=== PATIENT | female | born 1940 | race Caucasian/White ===

== ENCOUNTER 2018-08-17 14:40 | Inpatient (IN) | payer OTHER ==
[~2018-08-17] VITALS: Ht 167.6 cm; Wt 80.5 kg
[2018-08-17 15:35] LABS: ABSOLUTE BASOPHIL COUNT 0 /CUMM (0.0-0.2); ABSOLUTE EOSINOPHIL COUNT 0.2 /CUMM (0.0-0.7); ABSOLUTE GRANULOCYTE CT 3.4 /CUMM (1.4-6.5); ABSOLUTE LYMPH COUNT 1.7 /CUMM (1.2-3.4); ABSOLUTE MONOCYTE COUNT 0.5 /CUMM (0.10-0.60); BASOPHIL % 0.6 % (0.0-2.0); EOSINOPHIL % 3.8 % (0-5); GRANULOCYTE % 57.8 % (42.2-75.2); MEAN CORPUSCULAR HGB 30.6 PG (27.0-31.0); MEAN CORPUSCULAR VOLUME 92.8 FL (81.0-99.0); MEAN PLATELET VOLUME 7.4 FL (7.4-10.4); PLATELET COUNT 228 /CUMM (130-400); RBC DISTRIBUTION WIDTH 15.2 % (11.5-14.5); RED BLOOD CELL CT 3.56 /CUMM (4.20-5.40); WHITE BLOOD CELL COUNT 5.9 /CUMM (4.8-10.8)
--- NOTE | 2018-08-17 15:54 | ED CARDIAC/CP/PALPITATIONS ---
History of Present Illness General Chief Complaint: General Adult Stated Complaint: SIB HIGHWATCH FOR IRREGULAR EKG READING Source: patient Exam Limitations: no limitations Allergies Coded Allergies: No Known Allergies (08/17/18) Reconcile Medications Amlodipine Besylate 5 MG TABLET 1 TAB PO DAILY HIGH BLOOD PRESSURE (Reported) Fluoxetine HCl 20 MG CAPSULE 1 CAP PO DAILY DEPRESSION (Reported) Gabapentin 300 MG CAPSULE 1 CAP PO TID NERVES (Reported) Ibuprofen 600 MG TABLET 1 TAB PO TID PAIN CONTROL (Reported) with food Losartan Potassium 50 MG TABLET 1 TAB PO DAILY HIGH BLOOD PRESSURE (Reported) Pravastatin Sodium 40 MG TABLET 1 TAB PO QPM HIGH CHOLESTROL (Reported) Sertraline HCl 50 MG TABLET 1 TAB PO DAILY DEPRESSION (Reported) Trazodone HCl 50 MG TABLET 1 TAB PO QPM SLEEP HELP (Reported) Triage Note: 78F SIB HIGHWATCH DUE TO IRREGULAR EKG FINDINGS. PT DENIES KNOWN CARDIAC ISSUES ASIDE FROM AN AORTIC ANEURYSM. PT TAKEN TO EKG [place]. IRREGULAR RHYTHYM AUSCULTATED APICALLY. PT DENIES CP OR PRESSURE BUT ENDORSES INTERMITTENT PALPITATIONS AND FEELING LIKE HER HEART IS "FLIPPING" IN HER CHEST. DENIES SOB/RANKIN. DENIES N/V/D Triage Nurses Notes Reviewed? yes Duration: unknown duration HPI: 78-year-old female was sent in by [facility] facility for new onset A. fib. Patient was going to be admitted for alcoholism. She had just left a inpatient detox facility. Her last drink was 9 days ago. She does admit to some intermittent palpitations but denies any chest pain or shortness of breath. (El DUBON,Gary) Vital Signs & Intake/Output Vital Signs & Intake/Output Vital Signs Date Time Temp Pulse Resp B/P B/P Pulse O2 O2 Flow FiO2 Mean Ox Delivery Rate 08/17 2004 98.9 81 20 108/62 98 Room Air 08/17 1646 98.4 84 16 118/74 96 Room Air 08/17 1558 Room Air 08/17 1451 98.7 83 18 116/79 95 Room Air (Georges CARPENTER,Vahid) Past History Travel History Traveled to [place] past 21 day No Medical History Any Pertinent Medical History? see below for history Neurological: NONE EENT: NONE Cardiovascular: hypertension, hyperlipidemia, AORTIC ANEURYSM Respiratory: NONE Gastrointestinal: NONE Hepatic: NONE Renal: NONE Musculoskeletal: NONE Psychiatric: depression Endocrine: NONE Surgical History Surgical History: non-contributory Psychosocial History What is your primary language Venezuelan Tobacco Use: Current Daily Use Daily Tobacco Use Amount/Type: => 5 Cigarettes daily Family History Hx Contributory? No (Gary Ramirez) Review of Systems Review of Systems Constitutional: Reports: no symptoms. EENTM: Reports: no symptoms. Respiratory: Reports: no symptoms. Cardiovascular: Reports: see HPI. GI: Reports: no symptoms. Genitourinary: Reports: no symptoms. Musculoskeletal: Reports: no symptoms. Skin: Reports: no symptoms. Neurological/Psychological: Reports: no symptoms. Hematologic/Endocrine: Reports: no symptoms. Immunologic/Allergic: Reports: no symptoms. All Other Systems: Reviewed and Negative (Gary Ramirez) Physical Exam Physical Exam General Appearance: well developed/nourished, no apparent distress, alert Head: atraumatic Eyes: Bilateral: normal appearance. Ears, Nose, Throat: normal ENT inspection Neck: normal inspection Respiratory: no respiratory distress Cardiovascular: irregularly irregular Gastrointestinal: soft Extremities: normal inspection Neurologic/Psych: awake, alert Skin: intact, normal color Core Measures ACS in differential dx? No CVA/TIA Diagnosis No Sepsis Present: No Sepsis Focused Exam Completed? No (Gary Ramirez) Progress Differential Diagnosis: atrial fibrillation, hyperkalemia, hyperthyroid, PVCs/ PACs, V-fib/V-Tach Initial ED EKG: rate (77), AFIB (Gary Ramirez) Plan of Care: Orders Procedure Date/time Status PROTHROMBIN TIME 08/18 0105 Active Heart Healthy Diet 08/17 D Active Patient Data 08/17 1925 Active ED Holding Orders 08/17 192 Active Admit to inpatient 08/17 192 Active Weight 08/17 1827 Active Intake & Output 08/17 1446 Active TSH REFLEX 08/17 1446 Complete TROPONIN LEVEL 08/17 1446 Complete PHOSPHORUS 08/17 1446 Complete MAGNESIUM 08/17 1446 Complete COMPREHENSIVE METABOLIC PANEL 08/17 1446 Complete CBC WITHOUT DIFFERENTIAL 08/17 1446 Complete EKG 08/17 1445 Active Current Medications Sig/Neal Start time Last Medication Dose Stop Time Status Admin Heparin Sodium 25,000 UNIT Q24H 08/17 1830 AC 08/17 (Porcine) 1905 (Heparin) Sodium Chloride 500 ML Laboratory Tests 08/17/18 1520: Anion Gap 8, Estimated GFR > 60, BUN/Creatinine Ratio 20.0, Glucose 135 H, Calcium 8.8, Phosphorus 3.7, Magnesium 1.9, Total Bilirubin < 0.1 L, AST 21, ALT 30, Alkaline Phosphatase 51, Troponin I < 0.01, Total Protein 5.4 L, Albumin 3.4 L, Globulin 2.0, Albumin/Globulin Ratio 1.7, TSH &T3 &Free T4 Intrp 0.688, CBC w Diff NO MAN DIFF REQ, RBC 3.56 L, MCV 92.8, MCH 30.6, MCHC 33.0, RDW 15.2 H, MPV 7.4, Gran % 57.8, Lymphocytes % 28.6, Monocytes % 9.2, Eosinophils % 3.8, Basophils % 0.6, Absolute Granulocytes 3.4, Absolute Lymphocytes 1.7, Absolute Monocytes 0.5, Absolute Eosinophils 0.2, Absolute Basophils 0 (Vahid Su MD) Departure Departure Disposition: STILL A PATIENT Condition: Stable Clinical Impression Primary Impression: New onset a-fib Referrals: Unknown (PCP/Family) Departure Forms: Customer Survey General Discharge Information Admission Note Spoke With: James Dennis MD Documentation of Exam: Documentation of any treatments & extenuating circumstances including Concerns Regarding Discharge (functional status, medication knowledge or non-compliance, living conditions, etc.) that warrant an admission rather than observation: Spoke with Dr. Dennis from cardiology. Patient to be admitted for echocardiogram. IV heparin. Cardiac telemetry. Cardiac consultation. (Gary Ramirez) PA/[employer]TENA[employer] Co-Sign Statement Statement: ED Attending supervision documentation- x I saw and evaluated the patient. I have also reviewed all the pertinent lab results and diagnostic results. I agree with the findings and the plan of care as documented in the PA's/[employer]PER[employer]INTENANCE's documentation. [] I have reviewed the ED Record and agree with the PA's/STE[employer]PER[employer]INTENANCE's documentation. [] Additions or exceptions (if any) to the PAs/STE[employer] SUPER[employer]INTENANCE's note and plan are summarized below: Patient is resting comfortably in bed in no acute cardiopulmonary distress. Admission she is hemodynamically stable. (Vahid Su MD) Critical Care Note Critical Care Note Critical Care Time: 30-74 min (35) (Gary Ramirez)
--- NOTE | 2018-08-17 16:49 | Cons- Cardiology ---
General Information and HPI Consulting Request Date of Consult: 08/17/18 Requested By: Rad Ramos MD Reason for Consult: Atrial fibrillation History of Present Illness: The patient is a 78-year-old female with history of hypertension, hyperlipidemia , thoracic aortic aneurysm, and alcohol abuse. She was being evaluated for alcohol detox, and she is noted to be in new onset atrial fibrillation. She complains of palpitations for the past month. No prior history of atrial fibrillation. No chest pain. No shortness of breath. No syncope. No lightheadedness or dizziness. No nausea or vomiting. Allergies/Medications Allergies: Coded Allergies: No Known Allergies (08/17/18) Home Med List: Amlodipine Besylate 5 MG TABLET 1 TAB PO DAILY HIGH BLOOD PRESSURE (Reported) Apixaban (Eliquis) 5 MG TABLET 1 TAB PO BID AFIB Fluoxetine HCl 20 MG CAPSULE 1 CAP PO DAILY DEPRESSION (Reported) Gabapentin 300 MG CAPSULE 1 CAP PO TID NERVES (Reported) Ibuprofen 600 MG TABLET 1 TAB PO TID PAIN CONTROL (Reported) with food Losartan Potassium 50 MG TABLET 1 TAB PO DAILY HIGH BLOOD PRESSURE (Reported) Pravastatin Sodium 40 MG TABLET 1 TAB PO QPM HIGH CHOLESTROL (Reported) Sertraline HCl 50 MG TABLET 1 TAB PO DAILY DEPRESSION (Reported) Trazodone HCl 50 MG TABLET 1 TAB PO QPM SLEEP HELP (Reported) Current Medications: Current Medications Sig/Neal Start time Last Medication Dose Route Stop Time Status Admin Amlodipine Besylate 5 MG DAILY 08/18 09 AC PO Cyanocobalamin/ 1 BAG DAILY 08/17 2049 UNVr Thiamine/Pyridoxine IV Dextrose/Water 1,000 ML Fluoxetine HCl 20 MG DAILY 08/18 900 AC PO Gabapentin 300 MG TID 08/17 2100 AC 08/17 PO 221 Heparin Sodium 0 .STK-MED ONE 08/17 1854 DC (Porcine) .ROUTE Heparin Sodium 4,000 UNIT ONCE ONE 08/17 1830 DC 08/17 (Porcine) IV 08/17 1831 1905 Heparin Sodium 25,000 UNIT Q24H 08/17 1830 AC 08/17 (Porcine) IV 190 Sodium Chloride 500 ML Losartan Potassium 50 MG DAILY 08/18 0900 AC PO Magnesium Oxide 400 MG BID 08/17 2100 AC 08/17 PO 221 Metoprolol Tartrate 12.5 MG BID 08/17 2100 AC 08/17 PO 221 Multivitamins 1 TAB DAILY 08/18 900 AC PO Pravastatin Sodium 40 MG 1700 08/18 1700 AC PO Sertraline HCl 50 MG DAILY 08/18 900 AC PO Thiamine HCl 100 MG DAILY 08/18 900 AC PO Trazodone HCl 50 MG QPM 08/17 2100 AC 08/17 PO 221 Past History Travel History Traveled to [place] past 21 day No Medical History Neurological: NONE EENT: NONE Cardiovascular: hypertension, hyperlipidemia, AORTIC ANEURYSM Respiratory: NONE Gastrointestinal: NONE Hepatic: NONE Renal: NONE Musculoskeletal: NONE Psychiatric: depression Endocrine: NONE Family History Family History Reviewed? Family history was reviewed with the patient and is negative for any factors contributing to the current admission. Exam & Diagnostic Data Diagnostic Data EKG Results EKG tracing is independently reviewed, and reveals atrial for ablation with ventricular response of 86 Assessment/Plan Assessment/Plan Assessment: 1. New onset atrial fibrillation 2. Hypertension 3. Hyperkalemia Plan: * Monitor on telemetry * Check troponin to rule out myocardial infarction * Metoprolol 12.5 mg p.o. twice daily * IV heparin per protocol, with plan to change to Eliquis prior to * Echocardiogram Consult Acknowledgment - Thank you for your consult request.
[2018-08-17] MEDS ORDERED: LOSARTAN POTASS50 M1 PO (17:15)
[2018-08-17] MEDS ORDERED: TRAZODONE HCL50 M1 PO (17:18)
[2018-08-17] MEDS ORDERED: IBUPROFEN600 M1 PO (17:19)
[2018-08-17] MEDS ORDERED: GABAPENTIN300 M2 PO (17:20)
[2018-08-17] MEDS ORDERED: FLUOXETINE HCL20 M2 PO (17:20)
[2018-08-17] MEDS ORDERED: SERTRALINE HCL50 MG PO (17:21)
[2018-08-17] MEDS ORDERED: AMLODIPINE BESYL5 M1 PO (17:22)
[2018-08-17] MEDS ORDERED: PRAVASTATIN SOD40 M2 PO (17:24)
--- NOTE | 2018-08-17 20:36 | History & Physical ---
Goran Sosa 08/17/182035: General Information and HPI MD Statement: I have seen and personally examined JOSE L SAGASTUME and documented this H&P. The patient is a 78 year old F who presented with a patient stated chief complaint of [abnormal EKG finding]. Source of Information: patient Exam Limitations: no limitations History of Present Illness: The patient is a 78-year-old lady with a past medical history significant for hyperlipidemia, hypertension, alcohol Use, thoracic aortic aneurysm, and osteopenia who has presented to ED due to some abnormal findings in EKG by [facility] detox facility. The patient had gone to [facility] detox facility to be admitted for alcohol detoxification. She has states that the last drink of alcohol was on August 07, when she drank 1 pint of alcohol and she went to [facility] on that day. She is stated in the hospital for 1 week, she left her and went to [facility]. [facility] was found to have abnormal heart rhythm, EKG was done which showed atrial fibrillation. The patient reminds that she had palpitation retrospectively for the past 1 month, and describes as his heart was flipping in her chest. He mentions that it was more severe before she came to [facility], she still feels it during the interview but believes that it is better now. She denies any chest pain, chest pressure, shortness of breath, syncope, lightheadedness, dizziness, nausea, vomiting, abdominal pain, dysuria, or frequency. She says that she has gone to detox facilities for many times now, she goes home , and usually starts to drink alcohol after couple of days. She has not been able to quit alcohol. Prior to going to inpatient facility for alcohol detox, she had been drinking a pint of alcohol per day. She mentions that she had diarrhea previously and she believes that the reason was because she was not eating and she was just drinking alcohol. Diarrhea stopped after she has stopped drinking. She has been found to have multiple thyroid nodules, FNA, or biopsy was done for her which has not shown any evidence of malignancy. She has also noticed a change in her voice recently. She mentioned that she had a fall more than 2 years ago, she fractured her left ankle, she had swelling after that injury. Now she also has swelling at the same site. Her PCP is Dr. Cabral. Allergies: She is not allergic to any medications or foods. Past medical history: Hypertension, hyperlipidemia, alcohol abuse, thoracic aortic aneurysm, osteopenia, depression, arthritis, Past surgical history: Rotator cuff surgery Past medical history: Her sister is 81-year-old and she has Alzheimer disease for 4 years, her father from complications of Alzheimer's disease. Social history: She has been smoking cigarettes since she was 15 years old, she mentions that she smokes 4 cigarettes per day, and last time was this morning. She has failed to quit smoking and does not like the idea of using nicotine patch. She also drinks alcohol. Last drink was morning of August 07 before going to the inpatient detox facility when she had half a pint of vodka. Before that she took a pint of vodka daily. She has multiple failed attempts to quit drinking. She denies any recreational drug use. Allergies/Medications Allergies: Coded Allergies: No Known Allergies (08/17/18) Home Med list Amlodipine Besylate 5 MG TABLET 1 TAB PO DAILY HIGH BLOOD PRESSURE (Reported) Apixaban (Eliquis) 5 MG TABLET 1 TAB PO BID AFIB Fluoxetine HCl 20 MG CAPSULE 1 CAP PO DAILY DEPRESSION (Reported) Gabapentin 300 MG CAPSULE 1 CAP PO TID NERVES (Reported) Ibuprofen 600 MG TABLET 1 TAB PO TID PAIN CONTROL (Reported) with food Losartan Potassium 50 MG TABLET 1 TAB PO DAILY HIGH BLOOD PRESSURE (Reported) Pravastatin Sodium 40 MG TABLET 1 TAB PO QPM HIGH CHOLESTROL (Reported) Sertraline HCl 50 MG TABLET 1 TAB PO DAILY DEPRESSION (Reported) Trazodone HCl 50 MG TABLET 1 TAB PO QPM SLEEP HELP (Reported) Compliance With Home Meds: GOOD Past History Travel History Traveled to [place] past 21 day No Medical History Neurological: NONE EENT: NONE Cardiovascular: hypertension, hyperlipidemia, AORTIC ANEURYSM Respiratory: NONE Gastrointestinal: NONE Hepatic: NONE Renal: NONE Musculoskeletal: NONE Psychiatric: depression Endocrine: NONE Surgical History Surgical History: non-contributory Review of Systems Review of Systems Constitutional: Reports: see HPI. Exam & Diagnostic Data Last 24 Hrs of Vital Signs/I&O Vital Signs Date Time Temp Pulse Resp B/P B/P Pulse O2 O2 Flow FiO2 Mean Ox Delivery Rate 08/17 2315 98.6 75 16 122/78 97 Room Air 08/175 81 108/62 08/17 2004 98.9 81 20 108/62 98 Room Air 08/17 1646 98.4 84 16 118/74 96 Room Air 08/17 1558 Room Air 08/17 1451 98.7 83 18 116/79 95 Room Air Intake & Output 08/18 0800 08/18 0000 08/17 1600 Intake Total Output Total Balance Patient 178 lb 168 lb Weight Weight Standing Scale Reported by Patient Measurement Method Physical Exam General Appearance Alert, Oriented X3, Cooperative, No Acute Distress Skin No Rashes Skin Temp/Moisture Exam: Warm/Dry Sepsis Skin Exam (color): Normal for Ethnicity HEENT Atraumatic, PERRLA, EOMI, Mucous Membr. moist/pink Neck Supple, No JVD, No thryomegaly Cardiovascular Normal S1, Normal S2, Irregularly irregular rythem Lungs Clear to Auscultation, Normal Air Movement Abdomen Normal Bowel Sounds, Soft, No Tenderness, No Hepatospenomegaly Neurological Normal Speech, Strength at 5/5 X4 Ext, Normal Tone, Sensation Intact, Cranial Nerves 3-12 NL Extremities No Clubbing, No Cyanosis, No Edema, Normal Pulses, left ankle swelling, limited range of motion in right shoulder, deformity of left shoulder joint Vascular Normal Pulses, Pulses Symmetrical Sepsis Peripheral Pulse Location: Dorsalis Pedis Sepsis Peripheral Pulse Exam: Normal Sepsis Cap Refill Exam: <2 Sec Last 24 Hrs of Labs/Josue: Laboratory Tests 08/18/18 0115: PT 10.9, INR 1.00, Urine Opiates Screen < 100, Methadone Screen < 40, Barbiturate Screen < 60, Ur Phencyclidine Scrn < 6.00, Amphetamines Screen < 100 , U Benzodiazepines Scrn < 85, Urine Cocaine Screen < 50, Urine Cannabis Screen < 5.00, Urine Color YEL, Urine Clarity CLEAR, Urine pH 6.0, Ur Specific [place] 1.010, Urine Protein NEG, Urine Ketones NEG, Urine Nitrite NEG, Urine Bilirubin NEG, Urine Urobilinogen 0.2, Ur Leukocyte Esterase SMALL H, Ur Microscopic SEDIMENT EXAMINED, Urine WBC 1-3 H, Ur Epithelial Cells RARE, Urine Hemoglobin NEG, Urine Glucose NEG 08/17/18 2150: Troponin I < 0.01 08/17/18 1520: Anion Gap 8, Estimated GFR > 60, BUN/Creatinine Ratio 20.0, Glucose 135 H, Calcium 8.8, Phosphorus 3.7, Magnesium 1.9, Iron 41, TIBC 282, Ferritin 80.4, Total Bilirubin < 0.1 L, AST 21, ALT 30, Alkaline Phosphatase 51, Troponin I < 0.01, Total Protein 5.4 L, Albumin 3.4 L, Globulin 2.0, Albumin/Globulin Ratio 1.7, Vitamin B12 219 L, Folate 19.5, TSH &T3 &Free T4 Intrp 0.688, CBC w Diff NO MAN DIFF REQ, RBC 3.56 L, MCV 92.8, MCH 30.6, MCHC 33.0, RDW 15.2 H, MPV 7.4, Gran % 57.8, Lymphocytes % 28.6, Monocytes % 9.2, Eosinophils % 3.8, Basophils % 0.6, Absolute Granulocytes 3.4, Absolute Lymphocytes 1.7, Absolute Monocytes 0.5, Absolute Eosinophils 0.2, Absolute Basophils 0 Diagnostic Data EKG Results Atrial fibrillation, heart rate 77 Assessment/Plan Assessment: The patient is a 78-year-old female with a past medical history significant for thoracic aortic aneurysm, hyperlipidemia, hypertension, alcohol abuse, and osteopenia was sent here from [facility] detox facility due to abnormal EKG findings. Atrial fibrillation: The atrial fibrillation is probably new onset. The patient palpitation since 1 month ago which could be the first time she had actually atrial fibrillation. Patient rule out myocardial infarction, and prevent clot formation. Plan: Continuous cardiac monitoring, echocardiogram, IV heparin, metoprolol, serial EKG and troponin, cardiology consult appreciated. Alcohol use disorder: The patient has been detoxified already as she was both admitted to inpatient and then continue the [facility] detox facility. Last drink was on August 07, and she does not have any symptoms of withdrawal. Plan: Closely watch for withdrawal symptoms although unlikely to happen, thiamine, multivitamin, folate Anemia: The patient has a hemoglobin of 10.9 with normal MCV and no source of bleeding. She does not have any symptoms of GI, vaginal, or urinary bleeding. Plan: Since the patient is on IV heparin please watch for bleeding, and recheck H&H as needed Activity smoker: The patient smokes 4 cigarettes per day, talked to her about the benefits of quitting and risks of continuing Plan: She does not like nicotine patch, we will talk to her about nicotine gum, patch in case she needs it while in hospital. Depression: She is states that she has depression when she drinks alcohol. She is using sertraline, and trazodone. Plan: Trazodone 50 mg every afternoon, Aortic aneurysm: Was diagnosed previously by pick up man, is a stable, the patient has been told that she is low risk Plan: she is currently stable and should follow with her pick up man Hypertension: Patient has a known hypertension. Plan: Losartan 50 mg daily, amlodipine 5 mg daily Hyperlipidemia: The patient is currently on statin Plan: Pravastatin 40 mg daily As Ranked By This Provider Problem List: 1. New onset a-fib Core Measures/Misc (08/12) Acute Coronary Syndrome ACS Diagnosis: No Congestive Heart Failure Congestive Heart Failure Diagnosis No Cerebrovascular Accident CVA/TIA Diagnosis: No VTE (View Protocol) VTE Risk Factors Age>40 No Mechanical VTE Prophylaxis d/t Other (on IV heparin) No VTE Pharm Prophylaxis d/t NA PharmProphylax ordered Sepsis (View protocol) Sepsis Present: No If YES complete Sepsis Event Note If YES complete Sepsis Event Note Rad Ramos 08/17/182040: Core Measures/Misc (08/12) Sepsis (View protocol) If YES complete Sepsis Event Note If YES complete Sepsis Event Note Attending MD Review Statement Attending Statement Attending MD Statement: examined this patient, discuss w/resident/PA/RIDE OPERATOR, agreed w/resident/PA/RIDE OPERATOR, reviewed images, amended to note Attending Assessment/Plan: Addendum by . Patient was seen and examined at bedside today (08/17/18 ) at 7:30 Pm. Reviewed the history physical done by the resident. Reviewed the past medical family, family, social history. ROS: 10 point system reviewed and negative except as described above. Additional details: Patient is 78 years old female with history of hypertension, hyperlipidemia, thoracic aortic aneurysm of unknown size, depression, alcohol use disorder who was being treated for alcohol use disorder in [facility] is sent to ER because of atrial fibrillation noted on the EKG. Patient was in [facility] in [place] for alcohol withdrawal. After that she was discharged to [facility]. Patient says that she has been having on and off fluttering sensation in the chest going on for a month. Denies having any known cardiac issues before, no prior history of atrial fibrillation or flutter. Exam: Alert, oriented x3. Cardiac exam-regular heart sounds, no tachycardia, no murmurs. The rest of the examination is normal see the full exam per resident note. EKG, chest x-ray, labs reviewed Assessment and plan: #Atrial fibrillation-rate is controlled. New-onset. Per history probably going on for a month. Her chads 2 vascular score is 4. Getting heparin drip. We will start her on metoprolol 12.5 twice daily. Cardiology has seen her in the ER. Defer to cardiology regarding rhythm versus rate control. Likely benefit from a rhythm control given new onset. Watch her on telemetry. Get an echocardiogram. #normocytic anemia-hemoglobin is 10.9. Watch hemoglobin while on heparin drip. #Alcohol use disorder-currently in inpatient alcohol rehab as an outpatient. No withdrawal symptoms. Last drink was 10 days ago. Return to alcohol rehab upon discharge. Continue with the thiamine, folate. #Smoking-smokes 5 cigarettes/day. Smoking cessation was counseled. #Hypertension-currently controlled continue with amlodipine. #Hyperlipidemia-continue the statin. #Depression patient states she gets depression only when she drinks alcohol. She is on sertraline which in the process of transitioning to Prozac as per the patient. She is also on trazodone can be continued. #Aortic aneurysm in the chest as per the patient patient says that she was seen by cardiology and was told nothing to worry. Reviewed with the resident. Agree with the rest of the plan as per resident's note. Dr.Ravinder Corinne MD. Hospitalist. Pager: [phone], cell: [phone]. Destin CARPENTER,Juliet 08/17/182048: Core Measures/Misc (08/12) Sepsis (View protocol) If YES complete Sepsis Event Note If YES complete Sepsis Event Note Resident Review Statement Resident Statement: examined this patient, discussed with internal recruiter, agreed with internal recruiter, discussed with family Other Findings: Patient is a 78-year-old male sent from [facility] for irregular EKG. Patient is asymptomatic at the time of presentation. She went to alcohol detox at [facility] on 07 August. She stayed there for around 7 days and she is now on [facility] care since last 5 days. During the routine physical at [facility] she found to have abnormal heart rhythm so EKG was done which showed atrial fibrillation. On further evaluation patient endorses intermittent palpitation, feeling flipping in her chest since last 1 month. Denies nausea vomiting chest pain, dizziness, blurry vision, shortness of breath or dyspnea on exertion. Her last drink was on 07 August. Alcohol history-she is drinking since age of 20 but become alcoholic since last 30 years. She drinks around 1-1-1/2 pint of vodka daily. She underwent multiple detox with the failure attempts. Smoking history-she drinks around 4 cigarettes a day since age of 15. She had multiple failed attempts. She does not want to use nicotine patch. Of note according to her she had history of multiple thyroid nodule and biopsy was done which did not show any evidence of malignancy. She also thinks that her voice has been changed recently. She had history of recurrent diarrhea and relating it to alcohol use. After she stopped alcohol she does not have any evidence of diarrhea. PMH-hypertension, hyperlipidemia, depression, substance use disorder-alcohol, aortic aneurysm, chronic smoker, multiple thyroid nodules -benign biopsy, osteopenia PCP-Dr. Mays at [facility] in [place]. Vital signs at the time of admission-temperature 98.7, pulse 83, respiratory rate 18, blood pressure 116/79, SPO2 95% on room air. Physical exam-patient was oriented to time place and person, jovial, neck supple , no thyroid nodules are palpable, heart S1-S2 irregular, lungs bilaterally clear, abdomen examination-soft, bowel sounds positive, left ankle swelling - with no restrictions of movements present. Extremities bilateral peripheral pulses present. Blood workup showed-WBC 5.9, hemoglobin 10.8, hematocrit 33.0, RDW 15.2, platelet count 228, granulocyte 57.8, eosinophils 3.8, serum sodium 140, potassium 4.5, chloride 106, carbon DEXA 25, anion gap 8, BUN 18, creatinine 0.9 , glucose 135, calcium 8.8, phosphorus 3.7, magnesium 1.9, total bilirubin less than 0.1, AST 21, ALT 30, alkaline phosphatase 59, troponin 0 0.01, total protein 5.4, albumin 3.4, globulin 2.0, TSH 0.688 EKG-atrial fibrillation, controlled ventricular rate, heart rate 86, ED course-he was started on IV heparin drip after discussing with Problem list- * New-onset atrial fibrillation * Substance use disorder-last alcohol intake 9 days ago; undergoing [facility] * Normocytic normochromic anemia * Borderline hyperthyroidism need to repeat thyroid profile in 4-6 weeks * Left ankle swelling Assessment and plan- * We will admit the patient to telemetry floor * Serial troponins and EKGs * Continue heparin drip for now; plan is to change to Eliquis tomorrow. * We started patient on tablet metoprolol 12.5 mg twice daily. * Repeat CBC in the morning and watch for the bleeding * Follow cardiology recommendation * Follow-up echocardiogram * U tox * We will repeat the thyroid profile * We will start patient on magnesium 400 mg twice daily * We will supplement multivitamin and thiamine * She will return to [facility] after the discharge. * Will continue on her home medication. * Patient was on sertraline, which was changed to the Prozac 20 mg. We need to talk to the [facility] to know the exact dose of sertraline. In the meantime we hold it. * We will get the left ankle x-ray to rule out any fracture/swelling. * Alcohol cessation and smoking cessation counseling is already done. * Possibly patient will undergo outpatient electrical cardioversion * CODE STATUS-DNR/DNI * DVT prophylaxis-ALPs/heparin * Diet-heart healthy diet
[2018-08-17 23:15] VITALS: BP 122/78
[2018-08-18 02:00] LABS: PT 10.9 SEC (9.4-12.5)
[2018-08-18 03:12] LABS: PTT 103 SEC (25-37)
[2018-08-18 05:54] LABS: ABSOLUTE BASOPHIL COUNT 0 /CUMM (0.0-0.2); ABSOLUTE EOSINOPHIL COUNT 0.2 /CUMM (0.0-0.7); ABSOLUTE GRANULOCYTE CT 2.5 /CUMM (1.4-6.5); ABSOLUTE LYMPH COUNT 2.3 /CUMM (1.2-3.4); ABSOLUTE MONOCYTE COUNT 0.4 /CUMM (0.10-0.60); BASOPHIL % 0.8 % (0.0-2.0); EOSINOPHIL % 4.5 % (0-5); GRANULOCYTE % 45.6 % (42.2-75.2); HEMATOCRIT 31.5 % (37-47); MEAN CORPUSCULAR HGB 30.6 PG (27.0-31.0); MEAN CORPUSCULAR HGB CONC 32.7 G/DL (33.0-37.0); MEAN CORPUSCULAR VOLUME 93.5 FL (81.0-99.0); MEAN PLATELET VOLUME 8.1 FL (7.4-10.4); PLATELET COUNT 214 /CUMM (130-400); RBC DISTRIBUTION WIDTH 15.1 % (11.5-14.5); RED BLOOD CELL CT 3.37 /CUMM (4.20-5.40); WHITE BLOOD CELL COUNT 5.4 /CUMM (4.8-10.8)
[2018-08-18 06:46] VITALS: BP 110/70
[2018-08-18 08:00] VITALS: BP 112/80
[2018-08-18 08:22] VITALS: BP 112/80
--- NOTE | 2018-08-18 08:47 | PN- Housestaff ---
Jeff Soria 08/18/18 0846: Subjective Follow-up For: New onset afib Substance use disorder Anemia Complaints: no complaints Subjective: Patient seen and examined at bedside. Patient was on phone when approached by physician. Patient has no complaints, but is curious about when her left ankle x-ray will be performed. Echocardiogram results pending, may be done as outpatient if not performed today. Denies any pain. Denies fever/chills/night sweats/chest pain/abdominal pain/urinary symptoms. Review of Systems Constitutional: Reports: see HPI. Objective Last 24 Hrs of Vital Signs/I&O Vital Signs Date Time Temp Pulse Resp B/P B/P Pulse O2 O2 Flow FiO2 Mean Ox Delivery Rate 08/18 1200 70 08/18 1000 88 08/18 0823 65 112/80 08/18 0822 65 112/80 08/18 0822 63 112/80 08/18 0822 69 112/80 08/18 0800 98.0 72 20 112/80 08/18 0800 94 Room Air 08/18 0646 98.0 61 20 110/70 94 Room Air 08/17 2315 98.6 75 16 122/78 97 Room Air 08/17 2215 81 108/62 08/17 2004 98.9 81 20 108/62 98 Room Air 08/17 1646 98.4 84 16 118/74 96 Room Air 08/17 1558 Room Air 08/17 1451 98.7 83 18 116/79 95 Room Air Intake & Output 08/18 1600 08/18 0800 08/18 0000 Intake Total 263 Output Total 400 Balance -137 Intake, IV 143 Intake, Oral 120 Output, Urine 400 Patient 178 lb Weight Weight Standing Scale Measurement Method Physical Exam General Appearance: Alert, Oriented X3, Cooperative, No Acute Distress Cardiovascular: Normal S1, Normal S2, No Murmurs, Gallops, Rubs, irregular rhythm but sinus rate Lungs: Clear to Auscultation, Normal Air Movement Abdomen: Soft, No Tenderness, No Hepatospenomegaly Neurological: Normal Speech, Strength at 5/5 X4 Ext, Normal Tone, Sensation Intact Current Medications: Current Medications Sig/Neal Start time Last Medication Dose Route Stop Time Status Admin Amlodipine Besylate 5 MG DAILY 08/18 0900 AC 08/18 PO 0823 Apixaban 5 MG BID 08/18 1101 AC 08/18 PO 1226 Cyanocobalamin/ 1 BAG ONCE ONE 08/17 2049 CAN Thiamine/Pyridoxine IV 08/18 0448 Dextrose/Water 1,000 ML Fluoxetine HCl 20 MG DAILY 08/18 900 AC 08/18 PO 08 Gabapentin 300 MG TID 08/17 2100 AC 08/18 PO 08 Heparin Sodium 0 .STK-MED ONE 08/18 0408 DC (Porcine) .ROUTE Heparin Sodium 0 .STK-MED ONE 08/17 1854 DC (Porcine) .ROUTE Heparin Sodium 4,000 UNIT ONCE ONE 08/17 1830 DC 08/17 (Porcine) IV 08/17 1831 1905 Heparin Sodium 25,000 UNIT Q24H 08/17 183 DC 08/17 (Porcine) IV 190 Sodium Chloride 500 ML Losartan Potassium 50 MG DAILY 08/18 09 AC 08/18 PO 08 Magnesium Oxide 400 MG BID 08/17 2100 AC 08/18 PO 08 Metoprolol Tartrate 12.5 MG BID 08/17 2100 DC 08/18 PO 08 Multivitamins 1 TAB DAILY 08/18 09 AC 08/18 PO 08 Pravastatin Sodium 40 MG 1700 08/18 1700 AC PO Sertraline HCl 50 MG DAILY 08/18 09 CAN PO Thiamine HCl 100 MG DAILY 08/18 900 AC 08/18 PO 08 Trazodone HCl 50 MG QPM 08/17 2100 AC 08/17 PO 2216 Last 24 Hrs of Lab/Josue Results Last 24 Hrs of Labs/Mics: Laboratory Tests 08/18/18 1025: APTT 67 H 08/18/18 0400: Troponin I < 0.01 08/18/18 0400: Anion Gap 5, Estimated GFR > 60, BUN/Creatinine Ratio 17.8, TSH &T3 &Free T4 Intrp 0.898, CBC w Diff NO MAN DIFF REQ, RBC 3.37 L, MCV 93.5, MCH 30.6, MCHC 32.7 L, RDW 15.1 H, MPV 8.1, Gran % 45.6, Lymphocytes % 42.2, Monocytes % 6.9, Eosinophils % 4.5, Basophils % 0.8, Absolute Granulocytes 2.5, Absolute Lymphocytes 2.3, Absolute Monocytes 0.4, Absolute Eosinophils 0.2, Absolute Basophils 0 08/18/18 0115: PT 10.9, INR 1.00, APTT 103 *H, Urine Opiates Screen < 100, Methadone Screen < 40, Barbiturate Screen < 60, Ur Phencyclidine Scrn < 6.00, Amphetamines Screen < 100, U Benzodiazepines Scrn < 85, Urine Cocaine Screen < 50, Urine Cannabis Screen < 5.00, Urine Color YEL, Urine Clarity CLEAR, Urine pH 6.0, Ur Specific [place] 1.010, Urine Protein NEG, Urine Ketones NEG, Urine Nitrite NEG, Urine Bilirubin NEG, Urine Urobilinogen 0.2, Ur Leukocyte Esterase SMALL H, Ur Microscopic SEDIMENT EXAMINED, Urine WBC 1-3 H, Ur Epithelial Cells RARE, Urine Hemoglobin NEG, Urine Glucose NEG 08/17/18 2150: Troponin I < 0.01 08/17/18 1520: Anion Gap 8, Estimated GFR > 60, BUN/Creatinine Ratio 20.0, Glucose 135 H, Calcium 8.8, Phosphorus 3.7, Magnesium 1.9, Iron 41, TIBC 282, Ferritin 80.4, Total Bilirubin < 0.1 L, AST 21, ALT 30, Alkaline Phosphatase 51, Troponin I < 0.01, Total Protein 5.4 L, Albumin 3.4 L, Globulin 2.0, Albumin/Globulin Ratio 1.7, Vitamin B12 219 L, Folate 19.5, TSH &T3 &Free T4 Intrp 0.688, CBC w Diff NO MAN DIFF REQ, RBC 3.56 L, MCV 92.8, MCH 30.6, MCHC 33.0, RDW 15.2 H, MPV 7.4, Gran % 57.8, Lymphocytes % 28.6, Monocytes % 9.2, Eosinophils % 3.8, Basophils % 0.6, Absolute Granulocytes 3.4, Absolute Lymphocytes 1.7, Absolute Monocytes 0.5, Absolute Eosinophils 0.2, Absolute Basophils 0 Assessment/Plan Assessment: The patient is a 78-year-old female with a past medical history significant for thoracic aortic aneurysm, hyperlipidemia, hypertension, alcohol abuse, and osteopenia was sent here from [facility] due to abnormal EKG findings. Atrial fibrillation: The atrial fibrillation is probably new onset. The patient palpitation since 1 month ago which could be the first time she had actually atrial fibrillation. Patient rule out myocardial infarction, and prevent clot formation. Plan: Continuous cardiac monitoring, echocardiogram, IV heparin, metoprolol, serial EKG and troponin now completed, cardiology recs appreciated; can leave following Echo Alcohol use disorder: The patient has been detoxified already as she was both admitted to inpatient and then continue the [facility]. Last drink was on August 07, and she does not have any symptoms of withdrawal. Plan: Closely watch for withdrawal symptoms although unlikely to happen, thiamine, multivitamin, folate Anemia: The patient has a hemoglobin of 10.9 with normal MCV and no source of bleeding. She does not have any symptoms of GI, vaginal, or urinary bleeding. Plan: Since the patient is on IV heparin please watch for bleeding, and recheck H&H as needed Activity smoker: The patient smokes 4 cigarettes per day, talked to her about the benefits of quitting and risks of continuing Plan: She does not like nicotine patch, we will talk to her about nicotine gum, patch in case she needs it while in hospital. Depression: She is states that she has depression when she drinks alcohol. She is using sertraline, and trazodone. Plan: Trazodone 50 mg every afternoon, Aortic aneurysm: Was diagnosed previously by joinery patternmaker, is a stable, the patient has been told that she is low risk Plan: she is currently stable and should follow with her joinery patternmaker Hypertension: Patient has a known hypertension. Plan: Losartan 50 mg daily, amlodipine 5 mg daily Hyperlipidemia: The patient is currently on statin Plan: Pravastatin 40 mg daily DVT prophylaxis: Heparin drip and ALPS Heart healthy diet Patient is DNR/DNI Problem List: 1. New onset a-fib 2. Alcohol abuse Pain Ratin Pain Location: none Pain Goal: Remain pain free Pain Plan: Gabapentin, and prn medications Tomorrow's Labs & Rationales: CBC, BEP if still in hospital tomorrow Alsie CARPENTER,Amir 08/18/18 1136: Attending MD Review Statement Attending Statement Attending MD Statement: examined this patient, discuss w/resident/PA/REVENUE INTEGRITY ANALYST, agreed w/resident/PA/REVENUE INTEGRITY ANALYST, reviewed EMR data (avail), discussed with nursing Attending Assessment/Plan: pt was seen and evaluated. appreciate cardiology eval --f/u ECHO results --likely d/c home today
[2018-08-18] MEDS ORDERED: METOPROLOL TART25 M1 PO (09:49)
[2018-08-18] MEDS ORDERED: ELIQUIS5 M2 PO (09:49)
--- NOTE | 2018-08-18 09:57 | Patient Discharge Instructions ---
Discharge Instructions General Discharge Information You were seen/treated for: New Onset Afib Watch for these problems: Please return to the ER in case of any chest pain, palpitations, shortness of breath or worsening lower extremity edema. Special Instructions: Please follow up with your PCP and Secondary Special Education Teacher within a week after discharge. We have started you on blood thinner to reduce risk of getting stroke due to atrial fibrillation. Diet Continue normal diet: Yes Recommended Diet: Heart Healthy Activity Full Activity/No Limits: Yes Activity Self Limited: Yes Acute Coronary Syndrome Inclusion Criteria At DC or during hospital stay patient has or had the following: ACS DIAGNOSIS No Discharge Core Measures Meds if any: Prescribed or Continued at Discharge Meds if any: NOT Prescribed or Continued at Discharge Congestive Heart Failure Inclusion Criteria At DC or during hospital stay patient has or had the following: CHF DIAGNOSIS No Discharge Core Measures Meds if any: Prescribed or Continued at Discharge Meds if any: NOT Prescribed or Continued at Discharge Cerebrovascular accident Inclusion Criteria At DC or during hospital stay patient has or had the following: CVA/TIA Diagnosis No Discharge Core Measures Meds if any: Prescribed or Continued at Discharge Meds if any: NOT Prescribed or Continued at Discharge Venous thromboembolism Inclusion Criteria VTE Diagnosis No VTE Type NONE VTE Confirmed by (Test) NONE Discharge Core Measures - Per Current guidelines, there needs to be overlap - treatment for the first 5 days of Warfarin therapy. - If discharged on Warfarin prior to 5 days of - overlap therapy, the patient will need to be - assessed for post discharge needs including - *Post discharge parental anticoagulation - *Warfarin and/or parental anticoagulation education - *Follow up date to check INR post discharge At least 5 days overlap therapy as Inpatient No Meds if any: Prescribed or Continued at Discharge Note: Overlap Therapy is Warfarin and Anticoagulant Meds if any: NOT Prescribed or Continued at Discharge
--- NOTE | 2018-08-18 11:07 | PN- Cardiology ---
Subjective Subjective: Feeling well. No chest pain. No shortness breath. No palpitations. No diaphoresis. The patient remains in atrial fibrillation on telemetry with ventricular rate very well controlled Objective Vital Signs and I&Os Vital Signs Date Time Temp Pulse Resp B/P B/P Pulse O2 O2 Flow FiO2 Mean Ox Delivery Rate 08/18 1000 88 08/18 823 65 112/80 08/18 08 65 112/80 08/18 0822 63 112/80 08/18 0822 69 112/80 08/18 0800 98.0 72 20 112/80 08/18 0800 94 Room Air 08/18 0646 98.0 61 20 110/70 94 Room Air 08/17 2315 98.6 75 16 122/78 97 Room Air 08/17 2215 81 108/62 08/17 2004 98.9 81 20 108/62 98 Room Air 08/17 1646 98.4 84 16 118/74 96 Room Air 08/17 1558 Room Air 08/17 1451 98.7 83 18 116/79 95 Room Air Intake & Output 08/18 1600 08/18 0800 08/18 0000 08/17 1600 08/17 0800 08/17 0000 Intake Total 263 Output Total 400 Balance -137 Intake, IV 143 Intake, Oral 120 Output, Urine 400 Patient 178 lb 168 lb Weight Weight Standing Scale Reported by Patient Measurement Method Physical Exam: Gen: NAD HEENT: normal Lungs: clear to auscultation, normal resp. effort Heart: Irregularly irregular, S1, S2, no murmurs Abdomen: Soft, nontender, no masses Extremities: No clubbing, cyanosis, or edema. Neuro: Alert and oriented x 3, cranial nerves intact Current Medications: Current Medications Sig/Neal Start time Last Medication Dose Route Stop Time Status Admin Amlodipine Besylate 5 MG DAILY 08/18 900 AC 08/18 PO 822 Apixaban 5 MG BID 08/18 1101 AC PO Cyanocobalamin/ 1 BAG ONCE ONE 08/17 2049 CAN Thiamine/Pyridoxine IV 08/18 0448 Dextrose/Water 1,000 ML Fluoxetine HCl 20 MG DAILY 08/18 900 AC 08/18 PO 822 Gabapentin 300 MG TID 08/17 2100 AC 08/18 PO 08 Heparin Sodium 0 .STK-MED ONE 08/18 0408 DC (Porcine) .ROUTE Heparin Sodium 0 .STK-MED ONE 08/17 1854 DC (Porcine) .ROUTE Heparin Sodium 4,000 UNIT ONCE ONE 08/17 1830 DC 08/17 (Porcine) IV 08/17 1831 1905 Heparin Sodium 25,000 UNIT Q24H 08/17 1830 DC 08/17 (Porcine) IV 190 Sodium Chloride 500 ML Losartan Potassium 50 MG DAILY 08/18 0900 AC 08/18 PO 08 Magnesium Oxide 400 MG BID 08/17 2100 AC 08/18 PO 08 Metoprolol Tartrate 12.5 MG BID 08/17 2100 DC 08/18 PO 08 Multivitamins 1 TAB DAILY 08/18 09 AC 08/18 PO 08 Pravastatin Sodium 40 MG 1700 08/18 1700 AC PO Sertraline HCl 50 MG DAILY 08/18 900 CAN PO Thiamine HCl 100 MG DAILY 08/18 900 AC 08/18 PO 822 Trazodone HCl 50 MG QPM 08/17 2100 AC 08/17 PO 2216 Results Last 48 Hrs of Labs/Mics: Laboratory Tests 08/18/18 1025: APTT Pending 08/18/18 0400: Troponin I < 0.01 08/18/18 0400: Anion Gap 5, Estimated GFR > 60, BUN/Creatinine Ratio 17.8, TSH &T3 &Free T4 Intrp 0.898, CBC w Diff NO MAN DIFF REQ, RBC 3.37 L, MCV 93.5, MCH 30.6, MCHC 32.7 L, RDW 15.1 H, MPV 8.1, Gran % 45.6, Lymphocytes % 42.2, Monocytes % 6.9, Eosinophils % 4.5, Basophils % 0.8, Absolute Granulocytes 2.5, Absolute Lymphocytes 2.3, Absolute Monocytes 0.4, Absolute Eosinophils 0.2, Absolute Basophils 0 08/18/18 0115: PT 10.9, INR 1.00, APTT 103 *H, Urine Opiates Screen < 100, Methadone Screen < 40, Barbiturate Screen < 60, Ur Phencyclidine Scrn < 6.00, Amphetamines Screen < 100, U Benzodiazepines Scrn < 85, Urine Cocaine Screen < 50, Urine Cannabis Screen < 5.00, Urine Color YEL, Urine Clarity CLEAR, Urine pH 6.0, Ur Specific [place] 1.010, Urine Protein NEG, Urine Ketones NEG, Urine Nitrite NEG, Urine Bilirubin NEG, Urine Urobilinogen 0.2, Ur Leukocyte Esterase SMALL H, Ur Microscopic SEDIMENT EXAMINED, Urine WBC 1-3 H, Ur Epithelial Cells RARE, Urine Hemoglobin NEG, Urine Glucose NEG 08/17/18 2150: Troponin I < 0.01 08/17/18 1520: Anion Gap 8, Estimated GFR > 60, BUN/Creatinine Ratio 20.0, Glucose 135 H, Calcium 8.8, Phosphorus 3.7, Magnesium 1.9, Iron 41, TIBC 282, Ferritin 80.4, Total Bilirubin < 0.1 L, AST 21, ALT 30, Alkaline Phosphatase 51, Troponin I < 0.01, Total Protein 5.4 L, Albumin 3.4 L, Globulin 2.0, Albumin/Globulin Ratio 1.7, Vitamin B12 219 L, Folate 19.5, TSH &T3 &Free T4 Intrp 0.688, CBC w Diff NO MAN DIFF REQ, RBC 3.56 L, MCV 92.8, MCH 30.6, MCHC 33.0, RDW 15.2 H, MPV 7.4, Gran % 57.8, Lymphocytes % 28.6, Monocytes % 9.2, Eosinophils % 3.8, Basophils % 0.6, Absolute Granulocytes 3.4, Absolute Lymphocytes 1.7, Absolute Monocytes 0.5, Absolute Eosinophils 0.2, Absolute Basophils 0 Assessment/Plan Assessment/Plan Assessment: 1. Alcohol abuse 2. New onset atrial fibrillation, rate under control 3. Hypertension, controlled Plan: * Start Eliquis 5 mg p.o. twice daily * Discontinue heparin when first dose of Eliquis is given * Would discontinue metoprolol given that the ventricular rate was normal on presentation and has been low normal in the hospital * Echocardiogram pending * Likely ready for discharge today * The patient should follow-up with her payment collector in 1-2 weeks for adjustment of medications, and to arrange possible cardioversion as outpatient Continue telemetry? Yes
[2018-08-18 11:55] LABS: PTT 67 SEC (25-37)
[2018-08-18 14:21] VITALS: BP 106/76
--- NOTE | 2018-08-18 15:14 | RADIOLOGY REPORT ---
EXAMINATION: XR ANKLE, LEFT CLINICAL INFORMATION: Left ankle swelling evaluate for fracture COMPARISON: None TECHNIQUE: AP, lateral, and mortise views of the left ankle. FINDINGS: There is mild generalized soft tissue swelling. There is mild arthrosis of the talonavicular joint. There is a small plantar calcaneal spur. IMPRESSION: No acute abnormality. I do not see a fracture
[2018-08-18 16:00] VITALS: BP 106/76
[2018-08-18 23:09] VITALS: BP 98/60
[2018-08-19 06:20] VITALS: BP 120/80
--- NOTE | 2018-08-19 06:59 | PN- Housestaff ---
Jeff Soria 08/19/18 0659: Subjective Follow-up For: New onset afibt Alcohol use disorder Anemai Subjective: Patient seen and examined at the bedside. Patient complains of mild chest discomfort, reproducible by palpation. Otherwise, no complaints, and wants to return to her rehabilitation program as soon as possible. Otherwise denies any pain, headache, fever, chills, blurred/double vision, lightheadedness/dizziness, current chest pain at rest, palpitations, heartburn, shortness breath, cough, vomiting, abdominal pain, or urinary symptoms. Review of Systems Constitutional: Reports: see HPI. Objective Last 24 Hrs of Vital Signs/I&O Vital Signs Date Time Temp Pulse Resp B/P B/P Pulse O2 O2 Flow FiO2 Mean Ox Delivery Rate 08/19 900 93 118/74 08/19 09 93 118/74 08/19 0620 98.2 61 16 120/80 95 Room Air 08/18 2309 98.2 59 16 98/60 94 Room Air 08/18 1600 98.3 86 20 106/76 08/18 1600 95 Room Air 08/18 1421 98.3 72 20 106/76 95 Room Air 08/18 1200 70 Intake & Output 08/19 1600 08/19 0800 08/19 0000 Intake Total 200 620 Output Total Balance 200 620 Intake, Oral 200 620 Patient 178 lb Weight Weight Bed scale Measurement Method Physical Exam General Appearance: Alert, Oriented X3, Cooperative, No Acute Distress Skin: No Rashes, No Breakdown, No Significant Lesion Skin Temp/Moisture Exam: Warm/Dry Cardiovascular: Normal S1, Normal S2, No Murmurs, Gallops, Rubs, irregular rhythm but normal rate Lungs: Clear to Auscultation, Normal Air Movement Abdomen: Soft, No Tenderness Current Medications: Current Medications Sig/Neal Start time Last Medication Dose Route Stop Time Status Admin Amlodipine Besylate 5 MG DAILY 08/18 900 AC 08/19 PO 899 Apixaban 5 MG BID 08/18 1101 AC 08/19 PO 899 Fluoxetine HCl 20 MG DAILY 08/18 900 AC 08/19 PO 899 Gabapentin 300 MG TID 08/17 2100 AC 08/19 PO 09 Losartan Potassium 50 MG DAILY 08/18 900 AC 08/19 PO 899 Magnesium Oxide 400 MG BID 08/17 2100 AC 08/19 PO 901 Melatonin 5 MG ONCE ONE 08/18 2300 DC 08/18 PO 08/18 2301 2318 Multivitamins 1 TAB DAILY 08/18 900 AC 08/19 PO 899 Pravastatin Sodium 40 MG 1700 08/18 1700 AC 08/18 PO 1823 Thiamine HCl 100 MG DAILY 08/18 09 AC 08/19 PO 09 Trazodone HCl 50 MG QPM 08/17 2100 AC 08/18 PO 2156 Last 24 Hrs of Lab/Josue Results Last 24 Hrs of Labs/Mics: Laboratory Tests 08/19/18 0608: Anion Gap 6, Estimated GFR > 60, BUN/Creatinine Ratio 18.8, CBC w Diff NO MAN DIFF REQ, RBC 3.46 L, MCV 92.1, MCH 30.5, MCHC 33.1, RDW 15.1 H, MPV 8.2, Gran % 71.2, Lymphocytes % 19.8 L, Monocytes % 5.0, Eosinophils % 3.6, Basophils % 0.4, Absolute Granulocytes 4.6, Absolute Lymphocytes 1.3, Absolute Monocytes 0.3 , Absolute Eosinophils 0.2, Absolute Basophils 0 Orders Radiology Findings: Left Ankle Xray FINDINGS: There is mild generalized soft tissue swelling. There is mild arthrosis of the talonavicular joint. There is a small plantar calcaneal spur. IMPRESSION: No acute abnormality. I do not see a fracture Assessment/Plan Assessment: The patient is a 78-year-old female with a past medical history significant for thoracic aortic aneurysm, hyperlipidemia, hypertension, alcohol abuse, and osteopenia was sent here from [facility] facility due to abnormal EKG findings. Atrial fibrillation: The atrial fibrillation is new onset. The patient experienced palpitation since 1 month ago which could be the first time she had actually atrial fibrillation. Patient rule out myocardial infarction, and prevent clot formation. Plan: Continuous cardiac monitoring, echocardiogram, IV heparin, metoprolol, serial EKG and troponin now completed, cardiology recs appreciated; can leave following Echo, pending for today. Planned dischargte today Alcohol use disorder: The patient has been detoxified already as she was both admitted to inpatient and then continue the [facility] detox facility. Last drink was on August 07, and she does not have any symptoms of withdrawal. Plan: Closely watch for withdrawal symptoms although unlikely to happen, thiamine, multivitamin, folate Anemia: The patient has a hemoglobin of 10.9 with normal MCV and no source of bleeding. She does not have any symptoms of GI, vaginal, or urinary bleeding. Plan: Since the patient is on IV heparin please watch for bleeding, and recheck H&H as needed Activity smoker: The patient smokes 4 cigarettes per day, talked to her about the benefits of quitting and risks of continuing Plan: She does not like nicotine patch, we will talk to her about nicotine gum, patch in case she needs it while in hospital. Depression: She is states that she has depression when she drinks alcohol. She is using sertraline, and trazodone. Plan: Trazodone 50 mg every afternoon, Aortic aneurysm: Was diagnosed previously by tunnel elastic operator chainstitch, is a stable, the patient has been told that she is low risk Plan: she is currently stable and should follow with her tunnel elastic operator chainstitch. given her chest discomfort today, chest xray was ordered. Hypertension: Patient has a known hypertension. Plan: Losartan 50 mg daily, amlodipine 5 mg daily Hyperlipidemia: The patient is currently on statin Plan: Pravastatin 40 mg daily DVT prophylaxis: Heparin drip and ALPS Heart healthy diet Patient is DNR/DNI Problem List: 1. New onset a-fib Pain Ratin Pain Location: none Pain Goal: Remain pain free Pain Plan: none Tomorrow's Labs & Rationales: none; anticipated d/c today Preethi Mai MD 08/19/18 1037: Attending MD Review Statement Attending Statement Attending MD Statement: examined this patient, discuss w/resident/PA/WEB OFFSET PRESS FEEDER, agreed w/resident/PA/WEB OFFSET PRESS FEEDER, reviewed EMR data (avail), discussed with nursing, discussed with case mgmt, reviewed images Attending Assessment/Plan: Patient feels well and is eager to go to [facility]. This is a 78-year-old female with a past medical history of alcohol abuse who was admitted for new onset atrial fibrillation. Her rate is controlled and she is on Eliquis. We will get her echo read, get a chest x-ray and if stable likely discharge today.
[2018-08-19 08:00] VITALS: BP 118/74
[2018-08-19 08:09] LABS: ABSOLUTE BASOPHIL COUNT 0 /CUMM (0.0-0.2); ABSOLUTE EOSINOPHIL COUNT 0.2 /CUMM (0.0-0.7); ABSOLUTE GRANULOCYTE CT 4.6 /CUMM (1.4-6.5); ABSOLUTE LYMPH COUNT 1.3 /CUMM (1.2-3.4); ABSOLUTE MONOCYTE COUNT 0.3 /CUMM (0.10-0.60); BASOPHIL % 0.4 % (0.0-2.0); EOSINOPHIL % 3.6 % (0-5); HEMATOCRIT 31.9 % (37-47); MEAN CORPUSCULAR HGB 30.5 PG (27.0-31.0); MEAN CORPUSCULAR HGB CONC 33.1 G/DL (33.0-37.0); MEAN CORPUSCULAR VOLUME 92.1 FL (81.0-99.0); MEAN PLATELET VOLUME 8.2 FL (7.4-10.4); PLATELET COUNT 238 /CUMM (130-400); RBC DISTRIBUTION WIDTH 15.1 % (11.5-14.5); RED BLOOD CELL CT 3.46 /CUMM (4.20-5.40); WHITE BLOOD CELL COUNT 6.5 /CUMM (4.8-10.8)
[2018-08-19 08:48] LABS: GRANULOCYTE % 71.2 % (42.2-75.2)
--- NOTE | 2018-08-19 11:20 | PN- Cardiology ---
Subjective Subjective: No chest pain. No shortness breath. No palpitations. She remains in atrial for ablation with rate under control per Objective Vital Signs and I&Os Vital Signs Date Time Temp Pulse Resp B/P B/P Pulse O2 O2 Flow FiO2 Mean Ox Delivery Rate 08/19 0900 93 118/74 08/19 0900 93 118/74 08/19 0620 98.2 61 16 120/80 95 Room Air 08/18 2309 98.2 59 16 98/60 94 Room Air 08/18 1600 98.3 86 20 106/76 08/18 1600 95 Room Air 08/18 1421 98.3 72 20 106/76 95 Room Air 08/18 1200 70 Intake & Output 08/19 1600 08/19 0800 08/19 0000 08/18 1600 08/18 0800 08/18 0000 Intake Total 200 620 917 263 Output Total 400 Balance 200 620 917 -137 Intake, IV 117 143 Intake, Oral 200 620 800 120 Output, Urine 400 Patient 178 lb 178 lb Weight Weight Bed scale Standing Scale Measurement Method Physical Exam: Gen: NAD HEENT: normal Lungs: clear to auscultation, normal resp. effort Heart: Irregularly irregular, S1, S2, no murmurs Abdomen: Soft, nontender, no masses Extremities: No clubbing, cyanosis, or edema. Neuro: Alert and oriented x 3, cranial nerves intact Current Medications: Current Medications Sig/Neal Start time Last Medication Dose Route Stop Time Status Admin Amlodipine Besylate 5 MG DAILY 08/18 900 AC 08/19 PO 09 Apixaban 5 MG BID 08/18 1101 AC 08/19 PO 09 Fluoxetine HCl 20 MG DAILY 08/18 900 AC 08/19 PO 09 Gabapentin 300 MG TID 08/17 2100 AC 08/19 PO 09 Losartan Potassium 50 MG DAILY 08/18 900 AC 08/19 PO 09 Magnesium Oxide 400 MG BID 08/17 2100 AC 08/19 PO 09 Melatonin 5 MG ONCE ONE 08/18 2300 DC 08/18 PO 08/18 2301 2318 Multivitamins 1 TAB DAILY 08/18 900 AC 08/19 PO 09 Pravastatin Sodium 40 MG 1700 08/18 1700 AC 08/18 PO 1823 Thiamine HCl 100 MG DAILY 08/18 900 AC 08/19 PO 09 Trazodone HCl 50 MG QPM 08/17 2100 AC 08/18 PO 2156 Results Last 48 Hrs of Labs/Mics: Laboratory Tests 08/19/18 0608: Anion Gap 6, Estimated GFR > 60, BUN/Creatinine Ratio 18.8, CBC w Diff NO MAN DIFF REQ, RBC 3.46 L, MCV 92.1, MCH 30.5, MCHC 33.1, RDW 15.1 H, MPV 8.2, Gran % 71.2, Lymphocytes % 19.8 L, Monocytes % 5.0, Eosinophils % 3.6, Basophils % 0.4, Absolute Granulocytes 4.6, Absolute Lymphocytes 1.3, Absolute Monocytes 0.3 , Absolute Eosinophils 0.2, Absolute Basophils 0 08/18/18 1025: APTT 67 H 08/18/18 0400: Troponin I < 0.01 08/18/18 0400: Anion Gap 5, Estimated GFR > 60, BUN/Creatinine Ratio 17.8, TSH &T3 &Free T4 Intrp 0.898, CBC w Diff NO MAN DIFF REQ, RBC 3.37 L, MCV 93.5, MCH 30.6, MCHC 32.7 L, RDW 15.1 H, MPV 8.1, Gran % 45.6, Lymphocytes % 42.2, Monocytes % 6.9, Eosinophils % 4.5, Basophils % 0.8, Absolute Granulocytes 2.5, Absolute Lymphocytes 2.3, Absolute Monocytes 0.4, Absolute Eosinophils 0.2, Absolute Basophils 0 08/18/18 0115: PT 10.9, INR 1.00, APTT 103 *H, Urine Opiates Screen < 100, Methadone Screen < 40, Barbiturate Screen < 60, Ur Phencyclidine Scrn < 6.00, Amphetamines Screen < 100, U Benzodiazepines Scrn < 85, Urine Cocaine Screen < 50, Urine Cannabis Screen < 5.00, Urine Color YEL, Urine Clarity CLEAR, Urine pH 6.0, Ur Specific [place] 1.010, Urine Protein NEG, Urine Ketones NEG, Urine Nitrite NEG, Urine Bilirubin NEG, Urine Urobilinogen 0.2, Ur Leukocyte Esterase SMALL H, Ur Microscopic SEDIMENT EXAMINED, Urine WBC 1-3 H, Ur Epithelial Cells RARE, Urine Hemoglobin NEG, Urine Glucose NEG 08/17/180: Troponin I < 0.01 08/17/18 1520: Anion Gap 8, Estimated GFR > 60, BUN/Creatinine Ratio 20.0, Glucose 135 H, Calcium 8.8, Phosphorus 3.7, Magnesium 1.9, Iron 41, TIBC 282, Ferritin 80.4, Total Bilirubin < 0.1 L, AST 21, ALT 30, Alkaline Phosphatase 51, Troponin I < 0.01, Total Protein 5.4 L, Albumin 3.4 L, Globulin 2.0, Albumin/Globulin Ratio 1.7, Vitamin B12 219 L, Folate 19.5, TSH &T3 &Free T4 Intrp 0.688, CBC w Diff NO MAN DIFF REQ, RBC 3.56 L, MCV 92.8, MCH 30.6, MCHC 33.0, RDW 15.2 H, MPV 7.4, Gran % 57.8, Lymphocytes % 28.6, Monocytes % 9.2, Eosinophils % 3.8, Basophils % 0.6, Absolute Granulocytes 3.4, Absolute Lymphocytes 1.7, Absolute Monocytes 0.5, Absolute Eosinophils 0.2, Absolute Basophils 0 Assessment/Plan Assessment/Plan Assessment: 1. Alcohol abuse 2. New onset atrial fibrillation, rate under control 3. Hypertension, controlled Plan: * Continue Eliquis. * Echocardiogram pending * Likely ready for discharge today * The patient should follow-up with her allocation analyst in 1-2 weeks for adjustment of medications, and to arrange possible cardioversion as outpatient Continue telemetry? Yes
[2018-08-19 14:21] VITALS: BP 150/90
[2018-08-19 14:27] VITALS: BP 118/82
--- NOTE | 2018-08-19 14:47 | Discharge Summary ---
Visit Information Visit Dates Admission Date: 08/17/18 Discharge Date: August 19, 2018 Hospital Course Course Attending Physician: Pau CARPENTER,Preethi Tesfaye Primary Care Physician: Unknown Consulting Request: Consulting Specialty: Cardiology Consulting Physician: Dr. Dennis Reason for Consult: New onset AFIB Hospital Course: This is a 78-year-old lady with a past medical history significant for hyperlipidemia, hypertension, alcohol Use, thoracic aortic aneurysm, and osteopenia who has presented to ED due to some abnormal findings in EKG by [facility]. In the ER the patient was found to be in atrial fibrillation was admitted to telemetry floor and to manage how for the following conditions. Atrial fibrillation: The atrial fibrillation is probably new onset. The patient palpitation since 1 month ago which could be the first time she had actually atrial fibrillation. Patient was started on heparin drip and later transitioned to Eliquis for stroke prophylaxis. Remained with out rapid ventricular rate associated with A. fib and never required IV rate control medications. Alcohol use disorder: Patient was sent in from alcohol detox[facility]. The patient has been detoxified already as she was both admitted to inpatient and then continue the [facility]. Last drink was on August 07, and she did not display any symptoms of withdrawal. Patient was maintained on multivitamin and folic acid and thiamine. She has been discharged back to detoxification facility to continue with the process. Anemia: The patient has a hemoglobin of 10.9 with normal MCV and no source of bleeding. She does not have any symptoms of GI, vaginal, or urinary bleeding. For this postmenopausal woman with anemia's father workup to establish the cause of anemia which might include colonoscopy as outpatient Active smoker: The patient smokes 4 cigarettes per day, talked to her about the benefits of quitting and risks of continuing to smoke. Continue with smoke cessation education. Depression: The patient states that she has depression when she drinks alcohol. She is using sertraline, and trazodone. She was kept on the medication during the course of his stay and is being discharged home to continue with her home antidepressant medications. Aortic aneurysm: Was diagnosed previously by hammerer helper, is a stable, the patient has been told that she is low risk, the patient was encouraged to continue to follow with her hammerer helper Complications: None Allergies: Coded Allergies: No Known Allergies (08/17/18) Significant Procedures: None Pertinent Lab Results: Laboratory Tests 08/19 08/18 08/18 0608 1025 0400 Chemistry Sodium (137 - 145 mmol/L) 137 Potassium (3.5 - 5.1 mmol/L) 4.8 Chloride (98 - 107 mmol/L) 106 Carbon Dioxide (22 - 30 mmol/L) 25 Anion Gap (5 - 16) 6 BUN (7 - 17 mg/dL) 15 Creatinine (0.5 - 1.0 mg/dL) 0.8 Estimated GFR (>60 ml/min) > 60 BUN/Creatinine Ratio (7 - 25 %) 18.8 Troponin I (< 0.11 ng/ml) < 0.01 Coagulation APTT (25 - 37 SEC) 67 H Hematology CBC w Diff NO MAN DIFF REQ WBC (4.8 - 10.8 /CUMM) 6.5 RBC (4.20 - 5.40 /CUMM) 3.46 L Hgb (12.0 - 16.0 G/DL) 10.6 L Hct (37 - 47 %) 31.9 L MCV (81.0 - 99.0 FL) 92.1 MCH (27.0 - 31.0 PG) 30.5 MCHC (33.0 - 37.0 G/DL) 33.1 RDW (11.5 - 14.5 %) 15.1 H Plt Count (130 - 400 /CUMM) 238 MPV (7.4 - 10.4 FL) 8.2 Gran % (42.2 - 75.2 %) 71.2 Lymphocytes % (20.5 - 51.1 %) 19.8 L Monocytes % (1.7 - 9.3 %) 5.0 Eosinophils % (0 - 5 %) 3.6 Basophils % (0.0 - 2.0 %) 0.4 Absolute Granulocytes (1.4 - 6.5 /CUMM) 4.6 Absolute Lymphocytes (1.2 - 3.4 /CUMM) 1.3 Absolute Monocytes (0.10 - 0.60 /CUMM) 0.3 Absolute Eosinophils (0.0 - 0.7 /CUMM) 0.2 Absolute Basophils (0.0 - 0.2 /CUMM) 0 08/18 0400 Chemistry Sodium (137 - 145 mmol/L) 139 Potassium (3.5 - 5.1 mmol/L) 4.5 Chloride (98 - 107 mmol/L) 110 H Carbon Dioxide (22 - 30 mmol/L) 25 Anion Gap (5 - 16) 5 BUN (7 - 17 mg/dL) 16 Creatinine (0.5 - 1.0 mg/dL) 0.9 Estimated GFR (>60 ml/min) > 60 BUN/Creatinine Ratio (7 - 25 %) 17.8 TSH &T3 &Free T4 Intrp (0.270 - 4.20 uIU/mL) 0.898 Hematology CBC w Diff NO MAN DIFF REQ WBC (4.8 - 10.8 /CUMM) 5.4 RBC (4.20 - 5.40 /CUMM) 3.37 L Hgb (12.0 - 16.0 G/DL) 10.3 L Hct (37 - 47 %) 31.5 L MCV (81.0 - 99.0 FL) 93.5 MCH (27.0 - 31.0 PG) 30.6 MCHC (33.0 - 37.0 G/DL) 32.7 L RDW (11.5 - 14.5 %) 15.1 H Plt Count (130 - 400 /CUMM) 214 MPV (7.4 - 10.4 FL) 8.1 Gran % (42.2 - 75.2 %) 45.6 Lymphocytes % (20.5 - 51.1 %) 42.2 Monocytes % (1.7 - 9.3 %) 6.9 Eosinophils % (0 - 5 %) 4.5 Basophils % (0.0 - 2.0 %) 0.8 Absolute Granulocytes (1.4 - 6.5 /CUMM) 2.5 Absolute Lymphocytes (1.2 - 3.4 /CUMM) 2.3 Absolute Monocytes (0.10 - 0.60 /CUMM) 0.4 Absolute Eosinophils (0.0 - 0.7 /CUMM) 0.2 Absolute Basophils (0.0 - 0.2 /CUMM) 0 08/18 08/17 0115 2150 Chemistry Troponin I (< 0.11 ng/ml) < 0.01 Coagulation PT (9.4 - 12.5 SEC) 10.9 INR (0.90 - 1.19) 1.00 APTT (25 - 37 SEC) 103 *H Toxicology Urine Opiates Screen (>2000 NG/ML) < 100 Methadone Screen (>300 NG/ML) < 40 Barbiturate Screen (>200 NG/ML) < 60 Ur Phencyclidine Scrn (>25 NG/ML) < 6.00 Amphetamines Screen (>1000 NG/ML) < 100 U Benzodiazepines Scrn (>200 NG/ML) < 85 Urine Cocaine Screen (>300 NG/ML) < 50 Urine Cannabis Screen (>50 NG/ML) < 5.00 Urines Urine Color (YEL,AMB,STR) YEL Urine Clarity (CLEAR) CLEAR Urine pH (5.0 - 8.0) 6.0 Ur Specific [place] (1.001 - 1.035) 1.010 Urine Protein (NEG,<30 MG/DL) NEG Urine Ketones (NEG) NEG Urine Nitrite (NEG) NEG Urine Bilirubin (NEG) NEG Urine Urobilinogen (0.1 - 1.0 EU/dl) 0.2 Ur Leukocyte Esterase (NEG) SMALL H Ur Microscopic SEDIMENT EXAMINED Urine WBC (0 - 2 /HPF) 1-3 H Ur Epithelial Cells (NONE,FEW) RARE Urine Hemoglobin (NEG) NEG Urine Glucose (N MG/DL) NEG 08/17 1520 Chemistry Sodium (137 - 145 mmol/L) 140 Potassium (3.5 - 5.1 mmol/L) 4.5 Chloride (98 - 107 mmol/L) 106 Carbon Dioxide (22 - 30 mmol/L) 25 Anion Gap (5 - 16) 8 BUN (7 - 17 mg/dL) 18 H Creatinine (0.5 - 1.0 mg/dL) 0.9 Estimated GFR (>60 ml/min) > 60 BUN/Creatinine Ratio (7 - 25 %) 20.0 Glucose (65 - 99 mg/dL) 135 H Calcium (8.4 - 10.2 mg/dL) 8.8 Phosphorus (2.5 - 4.5 mg/dL) 3.7 Magnesium (1.6 - 2.3 mg/dL) 1.9 Iron (37 - 170 ug/dL) 41 TIBC (265 - 497 ug/dL) 282 Ferritin (11.1 - 264 ng/mL) 80.4 Total Bilirubin (0.2 - 1.3 mg/dL) < 0.1 L AST (14 - 36 U/L) 21 ALT (9 - 52 U/L) 30 Alkaline Phosphatase (<127 U/L) 51 Troponin I (< 0.11 ng/ml) < 0.01 Total Protein (6.3 - 8.2 g/dL) 5.4 L Albumin (3.5 - 5.0 g/dL) 3.4 L Globulin (1.9 - 4.2 gm/dL) 2.0 Albumin/Globulin Ratio (1.1 - 2.2 %) 1.7 Vitamin B12 (239 - 931 pg/mL) 219 L Folate (2.76 - 20.0 ng/mL) 19.5 TSH &T3 &Free T4 Intrp (0.270 - 4.20 uIU/mL) 0.688 Hematology CBC w Diff NO MAN DIFF REQ WBC (4.8 - 10.8 /CUMM) 5.9 RBC (4.20 - 5.40 /CUMM) 3.56 L Hgb (12.0 - 16.0 G/DL) 10.9 L Hct (37 - 47 %) 33.0 L MCV (81.0 - 99.0 FL) 92.8 MCH (27.0 - 31.0 PG) 30.6 MCHC (33.0 - 37.0 G/DL) 33.0 RDW (11.5 - 14.5 %) 15.2 H Plt Count (130 - 400 /CUMM) 228 MPV (7.4 - 10.4 FL) 7.4 Gran % (42.2 - 75.2 %) 57.8 Lymphocytes % (20.5 - 51.1 %) 28.6 Monocytes % (1.7 - 9.3 %) 9.2 Eosinophils % (0 - 5 %) 3.8 Basophils % (0.0 - 2.0 %) 0.6 Absolute Granulocytes (1.4 - 6.5 /CUMM) 3.4 Absolute Lymphocytes (1.2 - 3.4 /CUMM) 1.7 Absolute Monocytes (0.10 - 0.60 /CUMM) 0.5 Absolute Eosinophils (0.0 - 0.7 /CUMM) 0.2 Absolute Basophils (0.0 - 0.2 /CUMM) 0 Disposition Summary Disposition Principal Diagnosis: Atrial fibrillation Additional Diagnosis: Hypertension Hyperlipidemia Alcohol dependence on detox Thoracic aortic aneurysm Anemia Discharge Disposition: SNF Discharge Instructions General Discharge Information Code Status: Do Not Resucitate/Intubat Patient's Diet: Heart healthy diet Patient's Activity: As tolerated Follow-Up Instructions/Appts: Please call and make a follow-up with her primary care physician within 1 week after discharge Please call and make a follow-up with her hammerer helper for adjustment of medication after 1-2 weeks and arrangement for cardioversion. Please: Medicare follow-up with [facility] for your anemia Medications at Discharge Discharge Medications: Stop taking the following medications: Ibuprofen (Ibuprofen) 600 MG TABLET ORAL THREE TIMES DAILY Qty = 60 Continue taking these medications: Losartan Potassium (Losartan Potassium) 50 MG TABLET 1 Tablet ORAL DAILY Qty = 27 Trazodone HCl (Trazodone HCl) 50 MG TABLET 1 Tablet ORAL Every night Qty = 30 Gabapentin (Gabapentin) 300 MG CAPSULE 1 Capsule ORAL THREE TIMES DAILY Qty = 33 Fluoxetine HCl (Fluoxetine HCl) 20 MG CAPSULE 1 Capsule ORAL DAILY Qty = 30 Sertraline HCl (Sertraline HCl) 50 MG TABLET 1 Tablet ORAL DAILY Qty = 30 Amlodipine Besylate (Amlodipine Besylate) 5 MG TABLET 1 Tablet ORAL DAILY Qty = 90 Pravastatin Sodium (Pravastatin Sodium) 40 MG TABLET 1 Tablet ORAL Every night Qty = 90 Start taking the following new medications: Apixaban (Eliquis) 5 MG TABLET 1 Tablet ORAL TWICE DAILY Qty = 60 No Refills Copies To: Rebekah CARPENTER,Ori; James Dennis MD
== END 2018-08-19 16:25 | DRG 310 ==
LOC: ERH 14:40 → ERHI 19:24 → 1NO 19:24 → ENRESERV 19:53 → 1NO 21:08
PROVIDERS: General Practice; Internal Medicine; Internal Medicine Adolescent Medicine; Physician Assistant; Physician Assistant Medical
DX: I48.91 Unspecified atrial fibrillation (principal); E78.5 Hyperlipidemia, unspecified; I10 Essential (primary) hypertension; F32.9 Major depressive disorder, single episode, unspecified; M85.80 Other specified disorders of bone density and structure, unspecified site; E04.2 Nontoxic multinodular goiter; F10.10 Alcohol abuse, uncomplicated; D64.9 Anemia, unspecified; I71.2 Thoracic aortic aneurysm, without rupture; M25.472 Effusion, left ankle; F17.210 Nicotine dependence, cigarettes, uncomplicated; Z79.01 Long term (current) use of anticoagulants; Z66 Do not resuscitate
CPT/HCPCS: 1NSP; 36592; 73610-LT; 80307; 81001; 82436; 93005; 93010; 96374; 99291; J1644; J7060